=== PATIENT | male | born 1960 | race African-American/Black ===

== ENCOUNTER 2023-06-18 23:04 | Inpatient (IN) | payer OTHER ==
[2023-06-18 23:39] VITALS: BMI 23.5
[2023-06-19] MEDS ORDERED: cloNIDine HCL 0.1 MG TABLET PO ONE (04:19)
[2023-06-19] MEDS ORDERED: MAGNESIUM HYDROX 2400MG/30ML ORAL SUSPENSION 30 ML CUP PO PRN (04:20)
[2023-06-19] MEDS ORDERED: IBUPROFEN 400 MG TABLET (FP) PO PRN (04:20)
[2023-06-19] MEDS ORDERED: BENZONATATE 200 MG CAPSULE PO PRN (04:20)
[2023-06-19] MEDS ORDERED: IBUPROFEN 600 MG TABLET (FP) PO PRN (04:20)
[2023-06-19] MEDS ORDERED: MAG HYDROX/AL HYDROX/SIMETH 30 ML UNIT-DOSE CUP PO PRN (04:20)
[2023-06-19] MEDS ORDERED: NALOXONE HCL 0.4 MG/ML VIAL IM PRN (04:20)
[2023-06-19] MEDS ORDERED: BISMUTH SUBSALICYLATE 524 MG/30 ML PO PRN (04:20)
[2023-06-19] MEDS ORDERED: LOPERAMIDE HCL 2 MG CAPSULE PO PRN (04:20)
[2023-06-19] MEDS ORDERED: BENZOCAINE/MENTHOL (CHLORASEPTIC ) LOZENGE MM PRN (04:20)
[2023-06-19] MEDS ORDERED: POLYETHYLENE GLYCOL (HEALTHYLAX) 3350 17 GM PACKET PO PRN (04:20)
[2023-06-19] MEDS ORDERED: NICOTINE POLACRILEX 2 MG GUM BUC PRN (04:20)
[2023-06-19] MEDS ORDERED: ONDANSETRON *ODT* 4 MG TABLET SL PRN (04:20)
[2023-06-19] MEDS ORDERED: NALOXONE HCL (KLOXXADO) 8 MG SPRAY NS PRN (04:20)
[2023-06-19] MEDS ORDERED: DICYCLOMINE HCL 10 MG CAPSULE PO PRN (04:20)
[2023-06-19] MEDS ORDERED: guaiFENesin 600 MG TABLET.ER (FP) PO PRN (04:20)
[2023-06-19] MEDS ORDERED: ACETAMINOPHEN 325 MG TABLET (FP) ONE (04:28)
[2023-06-19] MEDS ORDERED: hydrOXYzine PAMOATE 25 MG CAPSULE (FP) PO ONE (04:28)
[2023-06-19] MEDS ORDERED: cloNIDine HCL 0.1 MG TABLET ONE (04:28)
[2023-06-19] MEDS: ACETAMINOPHEN 325 MG TABLET (FP) PO PRN ×2 (04:35→18:19)
[2023-06-19] MEDS: hydrOXYzine PAMOATE 25 MG CAPSULE (FP) PO PRN ×2 (04:37→23:42)
[2023-06-19] MEDS ORDERED: MAG HYDROX/AL HYDROX/SIMETH 30 ML UNIT-DOSE CUP ONE (04:41)
[2023-06-19] MEDS: NICOTINE 21 MG/24 HOURS TOPICAL PATCH TD SCH (10:39)
[2023-06-19] MEDS: PRENATAL VITAMINS W/ FOLIC ACID TABLET (FP) PO SCH (10:39)
[2023-06-19] MEDS ORDERED: LOSARTAN POTASSIUM 50 MG TABLET PO SCH (18:00)
[2023-06-19] MEDS: MELATONIN 5 MG TABLETS PO SCH (22:31)
[2023-06-19] MEDS: THIAMINE HCL 100 MG TABLET (FP) PO SCH (22:31)
[2023-06-20] MEDS: ACETAMINOPHEN 325 MG TABLET (FP) PO PRN (07:13)
[2023-06-20] MEDS ORDERED: cloNIDine HCL 0.1 MG TABLET PO ONE ×2 (07:30→17:33)
[2023-06-20] MEDS ORDERED: LOSARTAN POTASSIUM 50 MG TABLET PO ONE (08:00)
[2023-06-20 10:22] LABS: HEMATOCRIT 38.5 % (35.4-49); MCH 29.7 pg (25.7-33.7); MCHC 33.9 g/dl (32.0-35.9); MEAN CELL VOLUME 87.8 fl (80-96); MEAN PLT VOLUME 8.7 fl (7.5-11.1); PLATELET COUNT 158 10^3/uL (134-434); RBC 4.39 M/mm3 (4.00-5.60); RDW 12.9 % (11.9-15.9)
[2023-06-20 10:28] LABS: POTASSIUM 3.8 mmol/L (3.5-5.1)
[2023-06-20 10:43] LABS: ALBUMIN 3.4 g/dl (3.4-5.0); BILIRUBIN,TOTAL 0.5 mg/dL (0.2-1); BLOOD UREA NITROGEN 12.6 mg/dL (7-18); CALCIUM 8.7 mg/dL (8.5-10.1); CREATININE 1.3 mg/dL (0.55-1.3)
[2023-06-20 10:44] LABS: TOT PROT 6.3 g/dl (6.4-8.2)
[2023-06-20] MEDS: PRENATAL VITAMINS W/ FOLIC ACID TABLET (FP) PO SCH (10:44)
[2023-06-20] MEDS: NICOTINE 21 MG/24 HOURS TOPICAL PATCH TD SCH (10:45)
[2023-06-20] MEDS: THIAMINE HCL 100 MG TABLET (FP) PO SCH (22:29)
[2023-06-20] MEDS: MELATONIN 5 MG TABLETS PO SCH (22:29)
[2023-06-21] MEDS ORDERED: cloNIDine HCL 0.1 MG TABLET PO ONE (06:23)
[2023-06-21] MEDS: ACETAMINOPHEN 325 MG TABLET (FP) PO PRN (06:32)
[2023-06-21 09:30] VITALS: BP 157/90; PULSE 97; RESP 17; TEMP 98.1
[2023-06-21] MEDS ORDERED: LOSARTAN POTASSIUM 50 MG TABLET PO SCH (10:00)
[2023-06-21] MEDS: NICOTINE 21 MG/24 HOURS TOPICAL PATCH TD SCH (10:44)
[2023-06-21] MEDS: PRENATAL VITAMINS W/ FOLIC ACID TABLET (FP) PO SCH (10:46)
== END 2023-06-21 11:55 | disposition other institution (70) | DRG 775 ==
LOC: YASAS 23:04 → Y6N 06-19 05:17 → UNDOADMIN 06-19 05:17
PROVIDERS: ADMIT Allergy & Immunology; ATTEND Allergy & Immunology
PROC: HZ2ZZZZ Detoxification Services for Substance Abuse Treatment (ICD-10-PCS; principal; 2023-06-19)
DX: F10.20 Alcohol dependence, uncomplicated (principal); F10.24 Alcohol dependence with alcohol-induced mood disorder; F12.20 Cannabis dependence, uncomplicated; F17.210 Nicotine dependence, cigarettes, uncomplicated; F10.280 Alcohol dependence with alcohol-induced anxiety disorder; F10.282 Alcohol dependence with alcohol-induced sleep disorder; F25.0 Schizoaffective disorder, bipolar type; F90.9 Attention-deficit hyperactivity disorder, unspecified type; E78.5 Hyperlipidemia, unspecified; I10 Essential (primary) hypertension; J45.909 Unspecified asthma, uncomplicated; M16.0 Bilateral primary osteoarthritis of hip; M17.0 Bilateral primary osteoarthritis of knee; M54.50 Low back pain, unspecified; G89.29 Other chronic pain; Z87.19 Personal history of other diseases of the digestive system; Z59.00 Homelessness unspecified
CPT/HCPCS: 36415; 80053; 85027; 86780; 93005; 93010

== ENCOUNTER 2023-06-19 01:27 | Emergency (ER) | payer OTHER ==
[2023-06-19 01:44] VITALS: BP 168/100; PULSE 85; RESP 17; TEMP 97.9; BMI 23.5
== END 2023-06-19 03:25 | disposition home or self-care (01) ==
LOC: JER 01:27
DX: R60.0 Localized edema (principal); F10.10 Alcohol abuse, uncomplicated; Y90.9 Presence of alcohol in blood, level not specified
CPT/HCPCS: 99282-25